=== PATIENT | female | born 1995 | race Caucasian/White ===

== ENCOUNTER 2022-12-25 20:00 | Emergency (ER) | payer OTHER ==
[2022-12-25] MEDS ORDERED: Ketorolac Tromethamine 30 MG/ML VIAL ONE (20:55)
== END 2022-12-25 22:48 | disposition home or self-care (01) ==
LOC: CSHERS 20:00
DX: J18.9 Pneumonia, unspecified organism (principal); Z20.822 Contact with and (suspected) exposure to COVID-19
CPT/HCPCS: 71045; 87635; 93005; 93010; 96372; J1885

== ENCOUNTER 2023-05-18 08:31 | Outpatient (CLI) | payer OTHER | END 2023-05-18 08:32 | disposition home or self-care (01) | LOC: CSHULT 08:31 | PROVIDERS: ATTEND Nurse Practitioner Family | DX: N63.25 Unspecified lump in the left breast, overlapping quadrants (principal) ==

== ENCOUNTER 2023-07-14 22:27 | Emergency (ER) | payer OTHER ==
[2023-07-14] MEDS ORDERED: Ketorolac Tromethamine 30 MG (1 mL) VIAL ONE (22:49)
[2023-07-14 23:31] LABS: #Eosinphils 0.2 10x3/uL (0.0-0.5); #Monocytes 0.6 10x3/uL (0.0-1.1); #Neutrophils 5.2 10x3/uL (1.5-8.4); %Basophils 0.3 % (0.0-2.0); %Eosinophils 2.3 % (0.0-6.0); %Lymphocytes 31.4 % (18.0-47.0); %Neutrophils 58.5 % (40.0-75.0); Hematocrit 33.9 % (34.9-44.5); Hemoglobin 11.6 g/dL (12.0-15.5); Mean Corpuscular HGB CONC 34.2 g/dL (32.0-36.0); Mean Corpuscular Volume 84.8 fl (81.6-98.3); Mean Platelet Volume 10.1 fl (7.4-10.4); RBC Distribution Width 12.2 % (11.5-14.5); White Blood Cell (WBC) Count 8.9 10x3/uL (3.5-10.5)
[2023-07-14 23:35] LABS: ALT (SGPT) 13 U/L (8-55); AST (SGOT) 17 U/L (5-34); Albumin 4.5 g/dL (3.5-5.0); Alkaline Phosphatase 42 U/L (40-110); Anion Gap 16 mmol/L (10-20); BUN (Urea Nitrogen) 14 mg/dL (7.0-18.7); Bilirubin, Total 0.2 mg/dL (0.2-1.2); Calc. Creatinine Clearance 0 mL/min (70-130); Calcium 9.1 mg/dL (7.8-10.44); Carbon Dioxide 22 mmol/L (22-29); Chloride 103 mmol/L (98-107); Estimated GFR 122; Globulin 2.9 g/dL (2.4-3.5); Glucose 80 mg/dL (70-105); Potassium 3.8 mmol/L (3.5-5.1); Protein, Total 7.4 g/dL (6.0-8.3); Sodium 137 mmol/L (136-145)
[2023-07-14 23:41] LABS: Troponin I Less than 0.010 ng/mL (< 0.028)
[2023-07-14 23:44] LABS: Platelet Count 118 10x3/uL (150-450)
[2023-07-14 23:45] LABS: Large Platelets SLIGHT (None Seen); RBC Morph Comment Within Normal Limits
[2023-07-14 23:46] LABS: Platelet Adequacy Comment Appears Decreased
== END 2023-07-15 00:14 | disposition home or self-care (01) ==
LOC: CSHERS 22:27
DX: R07.89 Other chest pain (principal)
CPT/HCPCS: 71045; 80053; 84484; 85025; 93005; 96374; J1885